=== PATIENT | female | born 1995 | race Two or more races ===

== ENCOUNTER 2018-08-30 13:45 | Emergency (ER) | payer OTHER ==
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
[2018-08-30 14:49] VITALS: BP 112/75
== END 2018-08-30 14:47 | disposition home or self-care (01) ==
PROC: 0PSVXZZ Reposition Left Finger Phalanx, External Approach (ICD-10-PCS; principal; 2018-08-30)
DX: S62.655A Nondisplaced fracture of middle phalanx of left ring finger, initial encounter for closed fracture (principal); W23.1XXA Caught, crushed, jammed, or pinched between stationary objects, initial encounter
CPT/HCPCS: L3925

== ENCOUNTER 2018-08-30 23:42 | Emergency (ER) | payer OTHER ==
[2018-08-30 23:47] VITALS: BP 114/73
[2018-08-30] MEDS ORDERED: OXYCODONE/APAP 5/325 TAB PO ONE (23:55)
[2018-08-31] MEDS ORDERED: OXYCODONE/APAP 5/325MG PREPACK#4 BTL TAKEHOME ONE (00:01)
--- NOTE | 2018-08-31 00:01 | EDPHY ---
H & P Smoking Status: Never smoked Time Seen by Provider: 08/30/18 23:58 HPI/ROS: CHIEF COMPLAINT: Left ring finger pain. HISTORY OF PRESENT ILLNESS: 22-year-old female seen 17 in the ER earlier today for acute left ring finger pain was found to have a fracture of the middle phalanx the left 4th digit. She was given a digital nerve block which she states was uncomfortable but alleviated her pain. The nerve block has worn off and she presents to the ER for continued pain. She took a ibuprofen 200 mg without significant relief of her pain. No new trauma. PHYSICAL EXAM (Prior to examination, patient consented to physical exam, hands were washed and my usual and customary physical exam procedures followed) 1) GENERAL: Well-developed, well-nourished, alert and oriented. Appears to be in no acute distress. 2) HEAD: Normocephalic 3) HEENT: sclera anicteric 4) LUNGS: Breathing comfortably. 5) SKIN: Intact. No signs of infection. Negative kanavel. 6) MUSCULOSKELETAL: Tender to palpation 4th middle digit. 7) NEUROLOGIC: Full sensation two-point discrimination intact (Estefani Castillo) Constitutional: Initial Vital Signs Temperature (C) 36.4 C 08/30/18 23:44 Heart Rate 76 08/30/18 23:44 Respiratory Rate 16 08/30/18 23:44 Blood Pressure 114/73 08/30/18 23:44 O2 Sat (%) 97 08/30/18 23:44 O2 Delivery Mode Room Air Allergies/Adverse Reactions: No Known Allergies Allergy (Unverified 08/30/18 13:54) Home Medications: Medication Instructions Recorded NK [No Known Home Meds] 08/30/18 MDM/Departure - MDM Procedures: Procedure: Splint A yesy tape and aluminum finger splint was applied by ER hvac operations technician. After application of the splint I returned and re-examined the patient. The splint was adequately immobilizing the joint and distal to the splint the patient's circulation and sensation were intact. Patient shows no signs of compartment syndrome. Was given orthopedic precautions. (Estefani Castillo) Medications Given: Discontinued Medications Oxycodone/Acetaminophen (Percocet 5/325) 1 tab PO EDNOW ONE Stop: 08/30/18 23:56 Last Admin: 08/31/18 00:13 Dose: 1 tab Oxycodone/Acetaminophen (Percocet 5/325mg Prepack#4) 1 btl TAKELUÍSE EDNOW ONE Stop: 08/31/18 00:02 Last Admin: 08/31/18 00:13 Dose: 1 btl ED Course/Re-evaluation: Patient's dressing was taken down. I offered digital nerve block which she declines noting that it was too painful for her. I offered analgesia orally which she accepts. There are no signs of infection. No neurovascular compromise. Plan will be discharge home with analgesia. She is discharged appearing well. Care of patient under supervision of secondary supervising physician Dr Merritt . (Estefani Castillo) PHYSICIAN DOCUMENTATION: The patient was evaluated and managed by the Physician Toll Bridge Operator. My co- signature indicates that I have reviewed this chart and I agree with the findings and plan of care as documented. I am the secondary supervising physician. (Augusta Merritt) - Depart Disposition: Home, Routine, Self-Care Clinical Impression: Fracture of middle phalanx of left ring finger Condition: Good Instructions: Oxycodone/Acetaminophen (By mouth), Finger Fracture (ED) Additional Instructions: Return to the ER immediately if you experience discoloration, have worsening pain, numbness, tingling, or any other symptoms that concern you. If you received x-rays in the emergency department today, be advised, that ligamentous , tendon, muscular, and other non-bony injury cannot be fully ruled out. Try to keep your affected extremity elevated above the level of your chest, and keep cold packs on the affected area, for the next 48 hours. Referrals: Teto Goss MD [Medical Doctor] - 5-7 days, call for appt.
== END 2018-08-31 00:15 | disposition home or self-care (01) ==
DX: S62.625A Displaced fracture of middle phalanx of left ring finger, initial encounter for closed fracture (principal)